=== PATIENT | female | born 1985 | race Caucasian/White ===

== ENCOUNTER → 2020-09-30 11:29 | Outpatient (BNVA) | payer BC, SELFPAY | PROVIDERS: Family Provider Electrodiagnostic Medicine; Visit Provider Nurse Practitioner Family | DX: Z20.828 Contact with and (suspected) exposure to other viral communicable diseases (principal); J06.9 Acute upper respiratory infection, unspecified | CPT/HCPCS: 87635 ==

== ENCOUNTER 2020-11-12 12:39 | Outpatient (CLI) | payer BC, SELFPAY ==
--- NOTE | 2020-11-12 12:46 | US_ITS ---
WS: [id number] EARLY OBSTETRICAL ULTRASOUND (<14 WEEKS). HISTORY: SUPERVISION, NORMAL , MULTIPAROUS COMPARISON: None available. Single intrauterine gestational sac is identified. Cardiac activity at 160 BPM. Middleberg-rump length cindy sures 5.3 cm which corresponds to a gestation of 11w6d. Normal-appearing yolk sac and amnion demonstr ated. No subchorionic hemorrhage. No free fluid. RIGHT ovary is slightly enlarged measuring 3.2 x 2.4 x 3.8 cm. No mass. LEFT ovary is not definite vi sualized. US/US OB <= 14 weeks fetus [id number] IMPRESSION: 1. Single intrauterine gestation of 11 weeks 6 days with an EDC of 05/28/2021. 2. Normal cardiac activity.
== END 2020-11-12 12:40 | disposition home or self-care (01) ==
PROVIDERS: PCP Electrodiagnostic Medicine; Visit Provider Family Medicine
DX: Z34.81 Encounter for supervision of other normal pregnancy, first trimester (principal); Z3A.11 11 weeks gestation of pregnancy
CPT/HCPCS: 76801

== ENCOUNTER 2021-01-07 12:53 | Outpatient (CLI) | payer BC, SELFPAY ==
--- NOTE | 2021-01-07 13:07 | US_ITS ---
WS: [id number] OBSTETRICAL ULTRASOUND COMPLETE HISTORY: SUPERVISION NORMAL COMPARISON: 11/12/2020. Single intrauterine gestation in breech presentation. Cervix is Closed and normal length. Cervical length is 3.8 cm. Normal amount of amniotic fluid surrounds the fetus. Placenta: Anterior. No previa. Placenta grade 1 Heart: 141 BPM. 4 chamber heart is difficult to visualize. Anatomy: Intracranial structures and spine are normal. kidneys, stomach and urinary bladd er are unremarkable. Abdominal wall, three-vessel cord and cord insertion site are normal. 4 extremities are present. profile: Unremarkable. Gender: Female. measurements: BPD = 4.3 cm = 19w0d HC = 17.4 cm = 19w6d AC = 14.5 cm = 19w6d FL = 3.2 cm = 19w6d EFW: 315 g. Biometry is internally concordant. AGA by ultrasound: 19w5d ERYN by ultrasound: 05/29/2021 Appropriate growth since the prior ultrasound of 11/12/2020. US/US OB >= 14 weeks fetus [id number] IMPRESSION: 1. Single intrauterine gestation of 19w5d with an ERYN of 05/29/2021. 2. Difficult visualization of the four-chamber heart. Recommend follow-up in 2 -3 weeks. The remaining anatomy is remarkable.
== END 2021-01-07 12:54 | disposition home or self-care (01) ==
PROVIDERS: PCP Electrodiagnostic Medicine; Visit Provider Family Medicine
DX: Z3A.19 19 weeks gestation of pregnancy; Z34.82 Encounter for supervision of other normal pregnancy, second trimester
CPT/HCPCS: 76805

== ENCOUNTER 2021-01-27 12:33 | Outpatient (CLI) | payer BC, SELFPAY ==
--- NOTE | 2021-01-27 12:37 | US_ITS ---
WS: [id number] ULTRASOUND OB FOCUSED HISTORY: f/u heart anatomy COMPARISON: 01/07/2021 Intrauterine gestation in cephalic position. Cervix is closed measuring 4.5 cm. Placenta is anterior with no previa or abruption. Grade 1. heart rate at 136 BPM. Normal four-chamber heart is identified. Normal size and axis. Outflow tracts are better visualized t mich and intact. US[place] [id number] IMPRESSION: Normal follow-up reevaluation of the heart and outflow tracts.
== END 2021-01-27 12:34 | disposition home or self-care (01) ==
LOC: RAD 12:34
PROVIDERS: PCP Electrodiagnostic Medicine; Visit Provider Family Medicine
DX: Z34.80 Encounter for supervision of other normal pregnancy, unspecified trimester (principal)
CPT/HCPCS: 76816

== ENCOUNTER 2021-05-25 21:52 | Inpatient (IN) | payer BC, SELFPAY ==
[2021-05-25 21:22] VITALS: BP 130/70; PULSE 78; TEMP 36.6
[2021-05-25 21:57] VITALS: BP 128/70; PULSE 75
[2021-05-25 22:51] LABS: Basophils # 0.1 10^3/uL (0.0-0.1); Basophils % 0.3 %; Eosinophils # 0.1 10^3/uL (0.0-0.8); Eosinophils % 0.4 %; Hematocrit 34.6 % (37.0-47.0); Hemoglobin 11.4 g/dL (11.5-15.3); Lymphocytes # 2.6 10^3/uL (0.8-4.8); Lymphocytes % 16.4 %; Mean Corpuscular HGB Conc 32.9 g/dL (30.0-36.0); Mean Corpuscular Hemoglobin 28.2 pg (28.0-34.0); Mean Corpuscular Volume 85.6 fL (81-99); Mean Platelet Volume 11.5 fL (7.4-10.4); Monocytes # 1.4 10^3/uL (0.2-0.9); Monocytes % 8.8 %; Neutrophils # 11.48 10^3/uL (1.8-7.7); Neutrophils % 73.4 %; Nucleated Red Blood Cells % 0 %; Platelet Count 300 10^3/cmm (130-400); Red Blood Count 4.04 10^6/uL (4.1-5.3); Red Cell Distribution Width 13.5 % (12.1-15.1); White Blood Count 15.6 10^3/uL (4.0-10.0)
[2021-05-26] VITALS (32 sets, daily range): BP systolic 102–142; BP diastolic 56–87; PULSE 70–110; RESP 14–17; TEMP 35.6–37.1
[2021-05-26] MEDS: dextrose 5%-lactated ringers 1,000 ML 125 ML IV (00:12)
[2021-05-26] MEDS: oxytocin 30 UNIT/500 ML BAG IV (00:12)
[2021-05-26] MEDS: ondansetron 2 mg/ML SDV 2 mL 4 MG IVP (04:24)
[2021-05-26] MEDS: butorphanol 2 mg/mL SDV 1 mL 1 MG IVP (05:37)
[2021-05-26] MEDS: lidocaine 2% INJ 20 mL INJECTION (07:11)
--- NOTE | 2021-05-26 07:53 | P.HP_ITS ---
Providers/Chief Complaint Admitting Physician: Desmond Lenz MD Primary Care Provider: Gabriel Scott DO Chief Complaint: Possible ROM History of Present Illness Patricia Hooper is a 35 year old at 39.5 weeks gestation by LMP consistent with 11-week ultrasound. Her is complicated by hypothyroidism, advanced maternal age, COVID-19 infection September 27, 2020. Patient presented to labor and delivery triage overnight secondary to her water breaking at approximately 3 PM on 05/25/2020. The patient was not having contractions and noticed fluid leaking out suddenly while she was sitting down. It continued to come out and so she decided to try and labor at home. By approximately 930 that evening she decided to go to OB for further evaluation. In OB she was found to be grossly ruptured with a positive nitrazine test. The patient was kehinde every 4 to 5 minutes. Patient denies any chest pains, shortness of breath, fever, nausea, vomiting, diarrhea, constipation, dysuria, vaginal bleeding. Medications/Allergies Allergies Allergy/AdvReac Type Severity Reaction Status Date / Time No Known Allergies Allergy Unverified 09/30/20 10:16 PFSH Acute PFSH: Surgical History (Updated 05/27/21 @ 08:30 by Desmond Lenz MD) H/O wisdom tooth extraction Hx of tonsillectomy Social History (Updated 05/27/21 @ 08:30 by Desmond Lenz MD) Smoking and tobacco status: never smoked Alcohol intake: never Substance/Drug Use: never Female Reproductive History: : 2 Vitals/I&O/Wt Last Vital Signs Temp 97.7 F 05/26/21 04:31 Pulse 84 05/26/21 07:42 Resp 17 05/26/21 02:00 BP 118/57 05/26/21 07:42 05/25/21 05/26/21 05/26/21 22:59 06:59 14:59 Intake Total 199.85 / 199.85 Balance 199.85 / 199.85 Weight last 48 hrs Weight 247 lb Physical Exam Narrative: EXAM NARRATIVE: General: Alert and oriented x3 Eyes: Pupils equal round and reactive to light and accommodation Mouth: Mucous membranes moist, pharynx non-erythematous Cardiac: Regular rate and rhythm without murmurs Lungs: Clear to auscultation bilaterally without wheezes, crackles or rhonchi Abdomen: Soft, non-tender, fundus consistent with gestational age Extremities: Trace edema in the bilateral lower extremities Data : 05/26/21 19:20 A&P Additional A&P Information Upon presentation the patient was 2 cm dilated. After an hour she was not making any change on her own, so IV Pitocin was started to augment labor. We will proceed with routine delivery at this time. The patient does not desire to have an epidural. She is GBS negative. Attestations Medical Necessity Statement*: The patient will be here for greater than 2 midnights due to routine intrapartum and management of labor and delivery. Coding Level of Care Code Acute Electroencephalograph Technologist for Neeru Robison
--- NOTE | 2021-05-26 07:54 | P.PCNOB_ITS ---
Delivery Note: Date of delivery: May 26, 2021 Pre-delivery diagnoses: 1. Intrauterine at 39.5 weeks gestation 2. Advanced maternal age 3. Hypothyroidism 4. COVID-19 infection on 09/27/2020 Post-delivery diagnoses: 1. Intrauterine status post spontaneous vaginal delivery at 39.5 weeks gestation 2. Advanced maternal age 3. Hypothyroidism 4. COVID-19 infection on 09/27/2020 5. Delivery of healthy female weighing 7 pounds 7 ounces with Apgars of 8 and 10 Procedure: Spontaneous vaginal delivery Op report anesthesia: None Delivering Physician: Desmond Lenz MD Estimated blood loss (mL): 75 Findings: 1. Delivery of healthy infant female weighing 7 pounds 7 ounces with Apgars of 8 and 10. 2. Intact placenta with central umbilical cord insertion site. Pre-Delivery Course: The patient presented to labor and delivery secondary to spontaneous rupture membranes at approximately 3:00 in the afternoon on 05/25/2021. The patient presented to labor and delivery that evening. She was 2 cm dilated. She was not making adequate change and was given IV Pitocin to augment labor. The patient continued to make steady change and was 4 cm dilated. She then quickly changed to complete and I was urgently called to deliver at 6:41 AM. I arrived at 6:54 AM. The patient was noted to be complete at 6:41 AM. Delivery: The patient began pushing at 6:50 AM on 05/26/2021. With 1 push the delivered in the OA position at 6:58 AM on 05/26/2021. There was no nuchal cord. Left shoulder was the anterior shoulder and it delivered with ease. The infant delivered rapidly. The infant's mouth and nose were bulb suctioned by myself. The was placed on the mother's chest where the nurses were waiting to care for her. The cord was clamped by myself after approximately 1 minute. It was cut by the infant's father. Cord blood was obtained. The cord was then drained of blood and traction was placed on the umbilical cord and uterine massage was carried out. The placenta delivered without complication at 7:06 AM on 05/26/2021. It was noted to be intact with a central umbilical cord insertion site. The cervix was then inspected and no lacerations were noted. The vaginal wall was inspected and a second-degree midline perineal laceration was noted. This did not extend to the rectum. 1% lidocaine was placed for anesthesia and 3-0 Vicryl was used to repair the laceration. The patient tolerated the procedure well. Currently both the mother and are doing well. Coding Level of Care Code Acute Propulsion Motor And Generator Repairer for Neeru Robison
[2021-05-26] MEDS: docusate sodium 100 mg Capsule PO ×2 (09:08→17:41)
[2021-05-26] MEDS: prenatal vitamin Capsule 1 CAP PO (09:08)
[2021-05-26] MEDS: ibuprofen 800 mg tablet PO ×3 (09:08→21:31)
[2021-05-26 19:29] LABS: Hemoglobin 11.6 g/dL (11.5-15.3); Mean Corpuscular HGB Conc 32.2 g/dL (30.0-36.0); Mean Corpuscular Hemoglobin 28.4 pg (28.0-34.0); Mean Platelet Volume 10.8 fL (7.4-10.4); Platelet Count 300 10^3/cmm (130-400); Red Blood Count 4.09 10^6/uL (4.1-5.3); Red Cell Distribution Width 13.6 % (12.1-15.1); White Blood Count 21.7 10^3/uL (4.0-10.0)
[2021-05-27 06:07] VITALS: BP 131/69; PULSE 89; TEMP 36.3
--- NOTE | 2021-05-27 08:38 | PM.DCS ---
Discharge Providers Date of Admission: 05/25/21 21:52 Date of Discharge: May 27, 2021 Attending Provider at Admission: Desmond Lenz MD Attending Provider at Discharge: Desmond Lenz MD Primary Care Provider: Gabriel Scott DO Diagnoses at Discharge Other Information Additional DC diagnoses/information: 1. Intrauterine status post spontaneous vaginal delivery at 39.5 weeks gestation 2. Advanced maternal age 3. Hypothyroidism 4. COVID-19 infection on 09/27/2020 5. Delivery of healthy infant female weighing 7 pounds 7 ounces with Apgars of 8 and 10 Reason for Visit Reason for Visit: Possible ROM Hospital Course Hospital Course Pre-Delivery Course: The patient presented to labor and delivery secondary to spontaneous rupture membranes at approximately 3:00 in the afternoon on 05/25/2021. The patient presented to labor and delivery that evening. She was 2 cm dilated. She was not making adequate change and was given IV Pitocin to augment labor. The patient continued to make steady change and was 4 cm dilated. She then quickly changed to complete and I was urgently called to deliver at 6:41 AM. I arrived at 6:54 AM. The patient was noted to be complete at 6:41 AM. Delivery: The patient began pushing at 6:50 AM on 05/26/2021. With 1 push the delivered in the OA position at 6:58 AM on 05/26/2021. There was no nuchal cord. Left shoulder was the anterior shoulder and it delivered with ease. The infant delivered rapidly. The 's mouth and nose were bulb suctioned by myself. The infant was placed on the mother's chest where the nurses were waiting to care for her. The cord was clamped by myself after approximately 1 minute. It was cut by the infant's father. Cord blood was obtained. The cord was then drained of blood and traction was placed on the umbilical cord and uterine massage was carried out. The placenta delivered without complication at 7:06 AM on 05/26/2021. It was noted to be intact with a central umbilical cord insertion site. The cervix was then inspected and no lacerations were noted. The vaginal wall was inspected and a second-degree midline perineal laceration was noted. This did not extend to the rectum. 1% lidocaine was placed for anesthesia and 3-0 Vicryl was used to repair the laceration. The patient tolerated the procedure well. course: The patient has done well without any signs of complications. Her bleeding is decreasing well. She is ambulating, voiding, passing gas and tolerating food by mouth. Her pain is well controlled. Routine discharge instructions were discussed. The patient is in agreement with the current plan of care. Physical Exam Narrative: EXAM NARRATIVE: General: Alert and oriented x3 Cardiac: Regular rate and rhythm without murmurs Lungs: Clear to auscultation bilaterally without wheezes, crackles or rhonchi Abdomen: Soft, non-tender, fundus is firm and 2 cm below the umbilicus. Extremities: +1 pitting edema in the bilateral lower extremities Discharge Data Data Completed and Pending: Labs from last 24 hours 05/26/21 19:20 WBC 21.7 H RBC 4.09 L Hgb 11.6 Hct 36.0 L MCV 88.0 MCH 28.4 MCHC 32.2 RDW 13.6 Plt Count 300 MPV 10.8 H Vitals: Last Vital Signs Temp 97.3 F L 05/27/21 06:07 Pulse 89 05/27/21 06:07 Resp 15 05/26/21 13:26 BP 131/69 05/27/21 06:07 Discharge Plan Discharge Patient Disposition: Home Condition: Good Prescriptions: New ferrous sulfate 325 mg (65 mg iron) tablet 325 mg PO BID 15 Days Qty: 30 RF: 0 ibuprofen 800 mg Tablet 800 mg PO TID Qty: 60 RF: 0 -U 106.5-1 mg Capsule 1 cap PO DAILY Qty: 30 RF: 0 Discharge Orders: Discharge Order (Routine); Ordered 05/27/21 Ordered By: Desmond Lenz Referrals: Desmond Lenz MD [Physician] - 6 Weeks Discharge Diet: Regular Discharge Activity: Limit activity as instructed Patient Instructions: Vitamins (By mouth), Depression (GEN), Pre-eclampsia and Eclampsia (DC), Bleeding (DC), OB Discharge Report, OB Food/Drug Interaction Guide, Opioid Safety, OB Home Care, OB [employer] Parent Packet, OB Vaginal Deliveries Activity Restrictions/Additional Instructions: Nothing per vagina for 6 weeks Discharge Attestations Time Spent in Discharge Care*: greater than 30 min Quality Metrics Clinical Quality Measures During this hospital stay, did patient experience: None Coding Level of Care Code Acute Chg FW DC note
[2021-05-27 09:12] VITALS: BP 112/59; PULSE 88; RESP 16; TEMP 36.6
== END 2021-05-27 09:37 | disposition home or self-care (01) | DRG 807 ==
LOC: OPOB 21:56 → OBGYN 21:56
PROVIDERS: Admitting Provider Family Medicine; PCP Electrodiagnostic Medicine; Visit Provider Family Medicine
DX: O99.284 Endocrine, nutritional and metabolic diseases complicating childbirth (principal); Z37.0 Single live birth; E03.9 Hypothyroidism, unspecified; O70.1 Second degree perineal laceration during delivery; Z3A.39 39 weeks gestation of pregnancy; Z86.16 Personal history of COVID-19
CPT/HCPCS: 36415; 59025; 59409; 83986; 85025; 85027; 96374; 98960; 99211; J0595; J2405

== ENCOUNTER → 2022-04-07 08:06 | Outpatient (BNVA) | payer BC, SELFPAY | PROVIDERS: PCP Family Medicine; Visit Provider Family Medicine | DX: E03.9 Hypothyroidism, unspecified (principal) | CPT/HCPCS: 84439; 84443 ==

== ENCOUNTER → 2022-06-26 08:49 | Outpatient (BNVA) | payer BC, SELFPAY | PROVIDERS: PCP Family Medicine; Visit Provider Obstetrics & Gynecology | DX: Z01.419 Encounter for gynecological examination (general) (routine) without abnormal findings (principal) | CPT/HCPCS: 87624 ==

== ENCOUNTER → 2022-07-01 08:47 | Outpatient (BNVA) | payer BC, SELFPAY | PROVIDERS: PCP Family Medicine; Visit Provider Family Medicine | DX: Z00.00 Encounter for general adult medical examination without abnormal findings (principal); Z51.81 Encounter for therapeutic drug level monitoring; E03.9 Hypothyroidism, unspecified; Z13.220 Encounter for screening for lipoid disorders; Z34.90 Encounter for supervision of normal pregnancy, unspecified, unspecified trimester | CPT/HCPCS: 80053; 80061; 84439; 84443; 85025 ==

== ENCOUNTER → 2022-12-11 09:46 | Outpatient (BNVA) | payer BC, SELFPAY | PROVIDERS: PCP Family Medicine; Visit Provider Internal Medicine | DX: E03.9 Hypothyroidism, unspecified (principal) | CPT/HCPCS: 36415; 83516; 84439; 84443; 86376; 86800 ==

== ENCOUNTER 2023-02-08 10:57 | Outpatient (CLI) | payer BC, SELFPAY ==
[2023-02-08 12:00] LABS: Free T4 Free Thyroxine 1.24 ng/dL (0.82-1.77); Thyroid Stimulating Hormone 1.75 uIU/mL (0.27-4.20)
== END 2023-02-08 10:58 | disposition home or self-care (01) ==
LOC: LAB 11:00
PROVIDERS: PCP Family Medicine; Visit Provider Internal Medicine
DX: E03.9 Hypothyroidism, unspecified (principal)
CPT/HCPCS: 36415; 84439; 84443

== ENCOUNTER 2023-04-15 14:24 | Outpatient (CLI) | payer BC, SELFPAY ==
[2023-04-15 15:28] LABS: 25 Hydroxy Vitamin D 29 ng/mL (30-100); Thyroid Stimulating Hormone 2.01 uIU/mL (0.27-4.20)
[2023-04-15 15:52] LABS: Free T4 Free Thyroxine 1.22 ng/dL (0.82-1.77)
[2023-04-16 10:19] LABS: T3 Total 113 ng/dL (76-181)
== END 2023-04-15 14:25 | disposition home or self-care (01) ==
PROVIDERS: PCP Family Medicine; Visit Provider Internal Medicine
DX: E07.9 Disorder of thyroid, unspecified (principal); E03.9 Hypothyroidism, unspecified; M25.50 Pain in unspecified joint; E55.9 Vitamin D deficiency, unspecified
CPT/HCPCS: 82306; 84439; 84443; 84480

== ENCOUNTER → 2023-07-23 08:19 | Outpatient (BNVA) | payer BC, SELFPAY | PROVIDERS: PCP Family Medicine; Visit Provider Family Medicine | DX: E55.9 Vitamin D deficiency, unspecified (principal); Z51.81 Encounter for therapeutic drug level monitoring; Z00.00 Encounter for general adult medical examination without abnormal findings; Z13.220 Encounter for screening for lipoid disorders; E03.9 Hypothyroidism, unspecified | CPT/HCPCS: 80053; 80061; 85025 ==

== ENCOUNTER → 2023-10-15 08:51 | Outpatient (BNVA) | payer BC, SELFPAY | PROVIDERS: PCP Family Medicine; Visit Provider Family Medicine | DX: E55.9 Vitamin D deficiency, unspecified (principal); E03.9 Hypothyroidism, unspecified | CPT/HCPCS: 82306; 84439; 84443 ==

== ENCOUNTER → 2024-08-07 07:57 | Outpatient (BNVA) | payer BC, SELFPAY | PROVIDERS: PCP Family Medicine; Visit Provider Family Medicine | DX: Z00.00 Encounter for general adult medical examination without abnormal findings (principal); Z51.81 Encounter for therapeutic drug level monitoring; Z13.220 Encounter for screening for lipoid disorders; E55.9 Vitamin D deficiency, unspecified; E03.9 Hypothyroidism, unspecified | CPT/HCPCS: 80053; 80061; 82306; 84439; 84443; 85025 ==

== ENCOUNTER 2024-08-18 07:57 | Outpatient (CLI) | payer BC, SELFPAY ==
--- NOTE | 2024-08-18 08:00 | MM_ITS ---
WS: [id number] BILATERAL 3D TOMOSYNTHESIS DIGITAL SCREENING MAMMOGRAPHY WITH CAD CLINICAL INFORMATION: Screening mammogram HISTORY: Screening mammogram. No current complaints. COMPARISON: 2019 TECHNIQUE: Bilateral CC and MLO views. FINDINGS: The breasts are composed of heterogeneous fibroglandular density tissue, which can limit the detectio n of small underlying mass lesions. No suspicious mass, asymmetry, calcifications, or architectural d istortion. No evidence of malignancy. MM/MM [facility] tomosynthesis [id number] IMPRESSION: DENSITY: The breasts are heterogeneously dense, which may obscure small masses. BI-RADS: 2 - Benign FOLLOW UP: 1 Year Follow-up Recommend return to annual screening mammography.
== END 2024-08-18 07:58 | disposition home or self-care (01) ==
LOC: RAD 07:57
PROVIDERS: PCP Family Medicine; Visit Provider Family Medicine
DX: Z12.31 Encounter for screening mammogram for malignant neoplasm of breast (principal); R92.333 Mammographic heterogeneous density, bilateral breasts
CPT/HCPCS: 77063; 77067

== ENCOUNTER → 2025-01-04 12:08 | Outpatient (BNVA) | payer BC, SELFPAY | PROVIDERS: PCP Family Medicine; Visit Provider Family Medicine | DX: E55.9 Vitamin D deficiency, unspecified (principal); E03.9 Hypothyroidism, unspecified | CPT/HCPCS: 82306; 84439; 84443 ==

== ENCOUNTER → 2025-03-02 09:18 | Outpatient (BNVA) | payer BC, SELFPAY | PROVIDERS: PCP Family Medicine; Visit Provider Family Medicine | DX: E07.9 Disorder of thyroid, unspecified (principal); E03.9 Hypothyroidism, unspecified; M25.50 Pain in unspecified joint; E55.9 Vitamin D deficiency, unspecified | CPT/HCPCS: 84439; 84443 ==

== ENCOUNTER → 2025-07-25 07:05 | Outpatient (BNVA) | payer BC, SELFPAY | PROVIDERS: PCP Family Medicine; Visit Provider Family Medicine | DX: Z00.00 Encounter for general adult medical examination without abnormal findings (principal); Z51.81 Encounter for therapeutic drug level monitoring; E03.9 Hypothyroidism, unspecified; Z13.6 Encounter for screening for cardiovascular disorders | CPT/HCPCS: 80053; 80061; 84439; 84443; 85025 ==

== ENCOUNTER 2025-08-20 11:26 | Outpatient (CLI) | payer BC, SELFPAY ==
--- NOTE | 2025-08-20 11:33 | MM_ITS ---
WS: [id number] BILATERAL 3D TOMOSYNTHESIS DIGITAL SCREENING MAMMOGRAPHY WITH CAD CLINICAL INFORMATION: SCREENING HISTORY: Screening mammogram. No current complaints. COMPARISON: 2023 TECHNIQUE: Bilateral CC and MLO views. FINDINGS: The breasts are composed of heterogeneous fibroglandular density tissue, which can limit the detection of small underlying mass lesions. No suspicious mass, asymmetry, calcifications, or architectural distortion. No evidence of malignancy. MM/MM [facility] tomosynthesis [id number] IMPRESSION: DENSITY: The breasts are heterogeneously dense, which may obscure small masses. BI-RADS: 1 - Negative FOLLOW UP: 1 Year Follow-up Recommend return to annual screening mammography.
== END 2025-08-20 11:27 | disposition home or self-care (01) ==
LOC: RAD 11:27
PROVIDERS: PCP Family Medicine; Visit Provider Family Medicine
DX: Z12.31 Encounter for screening mammogram for malignant neoplasm of breast (principal); R92.323 Mammographic fibroglandular density, bilateral breasts; R92.333 Mammographic heterogeneous density, bilateral breasts
CPT/HCPCS: 77063; 77067

== ENCOUNTER → 2025-09-28 08:24 | Outpatient (BNVA) | payer BC, SELFPAY | PROVIDERS: PCP Family Medicine; Visit Provider Family Medicine | DX: E03.9 Hypothyroidism, unspecified (principal) | CPT/HCPCS: 82306; 84439; 84443 ==